=== PATIENT | male | born 1930 | race Caucasian/White ===

== ENCOUNTER 2016-09-27 14:18 | Inpatient (IN) | payer OTHER ==
[~2016-09-27] VITALS: Ht 172.7 cm; Wt 62.0 kg
--- NOTE | ~2016-09-27 | EKG ---
[place] [address] [facility] [employer] 

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
--- NOTE | ~2016-09-27 | EKG ---
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
--- NOTE | ~2016-09-27 | 2DMMODE ---
[facility] [address] [facility] [place] [address] 2 D/M-MODE ECHOCARDIOGRAM Name: CHANNING ABRAMS Room #: 204-P ADM IN .R.#: [id number] Admission: 09/27/16 Attend Phys: Yusef Duval Discharge: Date of : 32 Date of Service: 09/29/16 1238 Report #: [id number] THIS REPORT FOR: //name// APPROVED REPORT Study performed: 09/29/2016 07:54:21 EXAM: Comprehensive 2D, Doppler, and color-flow Echocardiogram Patient Location: Bedside Room #: 204 Status: routine Other Information Study Quality: Technically Limited Technically limited study due to lung disease. Indications COPD Diabetes CAD Elevated Troponin 2D Dimensions LVEF(%): 67.13 (>50%) IVSd: 10.66 (7-11mm) LVOT Diam: 19.45 (18-24mm) LVDd: 48.17 mm PWd: 11.23 (7-11mm) Ascending Ao: 30.64 (22-36mm) LVDs: 30.22 (25-40mm) Aortic Root: 30.46 mm IVC: 30.00 mm Castro's LVEF: 67.13 % Volumes Left Atrial Volume (Systole) Single Plane 4CH: 28.13 mL Single Plane 2CH: 26.33 mL LA ESV Index: 21.00 mL/m2 Mitral Valve E/A Ratio: 1.3 MV Decel. Time: 196.54 ms MV E Max Brian.: 1.04 m/s MV A Brian.: 0.82 m/s MV PHT: 57.00 ms IVRT: 101.50 ms [facility] [address] [place] [address] 2 D/M-MODE ECHOCARDIOGRAM Name: CHANNING ABRAMS Room #: 204-P ADM IN [facility]#: [id number] Admission: 09/27/16 Attend Phys: Yusef Duval Discharge: Date of : 32 Date of Service: 09/29/16 1238 Report #: [id number] Pulmonary Valve PV Peak Brian.: 1.46 m/s PV Peak Gr.: 8.57 mmHg Tricuspid Valve TR Peak Brian.: 3.18 m/s RAP Estimate: 10.00 mmHg TR Peak Gr.: 40.48 mmHg Left Ventricle The left ventricle is normal size. There is normal left ventricular wall thickness. Left ventricular systolic function is normal. LVEF is 60-65%. Grade II - pseudonormal filling dynamics. Right Ventricle The right ventricle is normal size. The right ventricular systolic function is normal. Atria The left atrium size is normal. The right atrium size is normal. Aortic Valve The aortic valve is mildly sclerotic. Mild aortic regurgitation. There is no aortic valvular stenosis. Mitral Valve The mitral valve is normal in structure. Mild mitral regurgitation. No evidence of mitral valve stenosis. Tricuspid Valve The tricuspid valve is normal in structure. There is mild tricuspid regurgitation. The right atrial pressure is estimated at 10 mmHg. PAP is estimated at 50 mmHg. Great Vessels The aortic root is normal in size. IVC is dilated and collapses >50% with inspiration. <Conclusion> The left ventricle is normal size. Left ventricular systolic function is normal. The right ventricle is normal size. The left atrium size is normal. The aortic valve is mildly sclerotic. Mild aortic regurgitation. Mild mitral regurgitation. [facility] [employer] [place] [address] 2 D/M-MODE ECHOCARDIOGRAM Name: CHANNING ABRAMS Room #: 204-P ADM IN .R.#: [id number] Admission: 09/27/16 Attend Phys: Yusef Duval Discharge: Date of : 32 Date of Service: 09/29/16 1238 Report #: [id number] There is mild tricuspid regurgitation. The right atrial pressure is estimated at 10 mmHg. PAP is estimated at 50 mmHg. <ELECTRONICALLY SIGNED> By: Mayur Calvo MD 09/29/16 1238 1238 1238 Mayur Calvo MD /INF
[2016-09-27 14:19] VITALS: BP 113/59
[2016-09-27 14:48] LABS: ABSOLUTE NEUTROPHILS 4.6 thou/uL (1.4-8.2); BASOPHILS 0.7 % (0.0-2.0); EOSINOPHILS 3.2 % (0.0-3.0); HEMATOCRIT 25.8 % (42.0-52.0); LYMPHOCYTES 19.6 % (24.0-44.0); MCH 33.4 pg (26.0-34.0); MCV 95.4 fL (80.0-100.0); MONOCYTES 6.6 % (1.0-8.0); PLATELET COUNT 265 thou/uL (150-400); POLYS 69.9 % (36.0-66.0); RBC 2.71 mil/uL (4.50-6.00); RDW 13.1 % (10.5-14.5); WBC 6.6 thou/uL (4.0-11.0)
[2016-09-27 14:49] LABS: MANUAL DIFF NO
[2016-09-27 14:57] LABS: ANION GAP 6 mmol/L (7-16); BUN 25 mg/dL (7-18); CALCIUM 8.8 mg/dL (8.5-10.1); CHLORIDE 106 mmol/L (98-107); CO2 28 mmol/L (21-32); CREATININE 1.7 mg/dL (0.7-1.3); GLUCOSE 305 mg/dL (74-106); POTASSIUM 4.3 mmol/L (3.5-5.1); SODIUM 140 mmol/L (136-145)
[2016-09-27 15:03] LABS: ALKALINE PHOSPHATASE 51 U/L (46-116); DIRECT BILIRUBIN < 0.1 mg/dL (<0.1-0.3); SGOT 17 U/L (15-37); SGPT 31 U/L (30-65); TOTAL BILIRUBIN 0.3 mg/dL (<0.1-1.0); TOTAL PROTEIN 6.6 g/dL (6.4-8.2)
[2016-09-27] MEDS ORDERED: LEVEMIR100 UNIT/1 SUBQ (15:11)
[2016-09-27] MEDS ORDERED: EXTRA STRENGTH500 MG PO (15:12)
[2016-09-27 15:47] VITALS: BP 164/47
[2016-09-27 16:45] VITALS: BP 137/39
[2016-09-27 19:40] VITALS: BP 136/95
[2016-09-28 01:11] VITALS: BP 145/47
[2016-09-28 03:33] VITALS: BP 145/51
[2016-09-28 06:20] LABS: ALBUMIN 2.8 g/dL (3.4-5.0); CALCIUM 8.4 mg/dL (8.5-10.1); CREATININE 1.6 mg/dL (0.7-1.3); POTASSIUM 3.9 mmol/L (3.5-5.1); TOTAL BILIRUBIN 0.4 mg/dL (<0.1-1.0); TOTAL PROTEIN 6.2 g/dL (6.4-8.2)
[2016-09-28 08:19] VITALS: BP 114/68
[2016-09-28 16:46] VITALS: BP 177/52
[2016-09-28 20:00] VITALS: BP 173/54
[2016-09-29] VITALS (7 sets, daily range): BP systolic 110–178; BP diastolic 55–97
[2016-09-29 07:42] LABS: HEMATOCRIT 24.7 % (42.0-52.0); HEMOGLOBIN 8.4 gm/dL (14.0-18.0); MCH 32.7 pg (26.0-34.0); MCHC 33.9 g/dL (28.0-37.0); MCV 96.5 fL (80.0-100.0); PLATELET COUNT 289 thou/uL (150-400); RBC 2.56 mil/uL (4.50-6.00); RDW 13.4 % (10.5-14.5); WBC 13.5 thou/uL (4.0-11.0)
[2016-09-29 07:44] LABS: MANUAL DIFF YES
[2016-09-29 07:45] LABS: CREATININE 1.5 mg/dL (0.7-1.3); POTASSIUM 3.9 mmol/L (3.5-5.1)
[2016-09-29 09:46] LABS: ABSOLUTE NEUTROPHILS 12.3 thou/uL (1.4-8.2); TOTAL CELL COUNT 100
[2016-09-29 09:47] LABS: ANISOCYTOSIS SLIGHT
[2016-09-29 21:30] LABS: URINE BILIRUBIN NEGATIVE (Negative); URINE BLOOD NEGATIVE (Negative); URINE GLUCOSE-RANDOM* 3+ (Negative); URINE KETONES NEGATIVE (Negative); URINE NITRITE NEGATIVE (Negative); URINE PROTEIN (DIPSTICK) NEGATIVE (Negative); URINE UROBILINOGEN 0.2 E.U./dl (0.2-1.0)
[2016-09-29 21:32] LABS: URINE COLOR COLORLESS
[2016-09-30 01:06] VITALS: BP 189/99
[2016-09-30 02:45] LABS: HEMATOCRIT 24.4 % (42.0-52.0); HEMOGLOBIN 8.4 gm/dL (14.0-18.0); MCHC 34.3 g/dL (28.0-37.0); MCV 96.1 fL (80.0-100.0); RBC 2.54 mil/uL (4.50-6.00); RDW 13.6 % (10.5-14.5)
[2016-09-30 02:52] LABS: CALCIUM 8.6 mg/dL (8.5-10.1); MAGNESIUM 1.6 mg/dL (1.8-2.4); POTASSIUM 4.5 mmol/L (3.5-5.1)
[2016-09-30 03:47] VITALS: BP 162/60
[2016-09-30 07:45] VITALS: BP 153/60
[2016-09-30 11:50] VITALS: BP 131/63
[2016-09-30 15:55] VITALS: BP 133/49
[2016-09-30 19:29] VITALS: BP 137/57
[2016-10-01 03:03] LABS: HEMATOCRIT 22.5 % (42.0-52.0); HEMOGLOBIN 7.7 gm/dL (14.0-18.0); MCH 32.8 pg (26.0-34.0); MCHC 34.4 g/dL (28.0-37.0); MCV 95.4 fL (80.0-100.0); RBC 2.36 mil/uL (4.50-6.00); RDW 13.4 % (10.5-14.5); WBC 10.3 thou/uL (4.0-11.0)
[2016-10-01 03:16] LABS: CALCIUM 8.5 mg/dL (8.5-10.1); POTASSIUM 4.1 mmol/L (3.5-5.1)
[2016-10-01 03:23] VITALS: BP 153/60
[2016-10-01 07:50] VITALS: BP 159/65
[2016-10-01 08:53] LABS: % SATURATION 10 % (20-39); IRON 13 ug/dL (65-175); TIBC 127 ug/dL (250-450); UIBC 114 ug/dL
[2016-10-01 12:25] VITALS: BP 138/44
[2016-10-01 16:40] VITALS: BP 173/67
[2016-10-01 19:32] VITALS: BP 148/56
[2016-10-02 03:52] VITALS: BP 155/82
[2016-10-02 04:15] LABS: HEMATOCRIT 21.8 % (42.0-52.0); HEMOGLOBIN 7.4 gm/dL (14.0-18.0); MCH 33.1 pg (26.0-34.0); MCV 97.4 fL (80.0-100.0); RBC 2.24 mil/uL (4.50-6.00); RDW 13.5 % (10.5-14.5); WBC 7.9 thou/uL (4.0-11.0)
[2016-10-02 04:31] LABS: CALCIUM 8.2 mg/dL (8.5-10.1); PHOSPHORUS 3.8 mg/dL (2.5-4.9); POTASSIUM 3.9 mmol/L (3.5-5.1)
[2016-10-02] MEDS ORDERED: HYDRALAZINE 2525 MG PO (07:06)
[2016-10-02] MEDS ORDERED: FLOMAX0.4 MG PO (07:06)
[2016-10-02] MEDS ORDERED: ASPIRIN325 PO (07:06)
[2016-10-02] MEDS ORDERED: LANTUS100 UNIT/M SUBQ (07:06)
[2016-10-02] MEDS ORDERED: ATORVASTATIN CA10 MG PO (07:06)
[2016-10-02] MEDS ORDERED: METOPROLOL SUCC25 M1 PO (07:06)
[2016-10-02] MEDS ORDERED: AUGMENTIN 875875 MG PO (07:07)
[2016-10-02 07:30] VITALS: BP 416/82
[2016-10-02 11:35] VITALS: BP 160/60
[2016-10-02 15:18] VITALS: BP 169/60
== END 2016-10-02 19:15 | DRG 682 ==
LOC: ER 14:18 → EROBS 15:24 → 5S 15:24 → 3N 09-28 18:02 → 2N 09-29 03:05
PROVIDERS: Family Medicine; Hospitalist; Nurse Practitioner; Nurse Practitioner Family
DX: N17.9 Acute kidney failure, unspecified (principal); I21.4 Non-ST elevation (NSTEMI) myocardial infarction; E43 Unspecified severe protein-calorie malnutrition; J96.01 Acute respiratory failure with hypoxia; J18.9 Pneumonia, unspecified organism; T74.01XA Adult neglect or abandonment, confirmed, initial encounter; I13.0 Hypertensive heart and chronic kidney disease with heart failure and stage 1 through stage 4 chronic kidney disease, or unspecified chronic kidney disease; N18.4 Chronic kidney disease, stage 4 (severe); E86.0 Dehydration; I44.7 Left bundle-branch block, unspecified; H54.8 Legal blindness, as defined in USA; E11.65 Type 2 diabetes mellitus with hyperglycemia; D64.9 Anemia, unspecified; E11.22 Type 2 diabetes mellitus with diabetic chronic kidney disease; I50.9 Heart failure, unspecified; E03.9 Hypothyroidism, unspecified; I25.10 Atherosclerotic heart disease of native coronary artery without angina pectoris; H35.30 Unspecified macular degeneration; E11.649 Type 2 diabetes mellitus with hypoglycemia without coma; Z95.1 Presence of aortocoronary bypass graft; Z87.891 Personal history of nicotine dependence; Z79.4 Long term (current) use of insulin; Z68.20 Body mass index [BMI] 20.0-20.9, adult; Z82.49 Family history of ischemic heart disease and other diseases of the circulatory system; Z83.3 Family history of diabetes mellitus
CPT/HCPCS: 10785; 10795; 10797